=== PATIENT | male | born 1990 | race Hispanic/Latino ===

== ENCOUNTER 2018-05-17 20:08 | Emergency (ER) | payer SELFPAY | END 2018-05-17 20:38 | disposition home or self-care (01) | LOC: SCSER 20:08 | DX: B34.9 Viral infection, unspecified (principal); F17.210 Nicotine dependence, cigarettes, uncomplicated | CPT/HCPCS: 87804; 99283 ==

== ENCOUNTER 2018-10-08 16:38 | Emergency (ER) | payer SELFPAY ==
[2018-10-08 17:14] LABS: #Basophils 0.1 thou/uL (0.0-0.2); #Eosinphils 0.1 thou/uL (0.0-0.7); #Lymphocytes 2.1 thou/uL (1.20-3.40); #Monocytes 0.4 thou/uL (0.11-0.59); #Neutrophils 6.4 thou/uL (1.40-6.50); %Basophils 1.1 % (0.0-1.0); %Eosinophils 0.7 % (0.0-10.0); %Lymphocytes 23.1 % (21.0-51.0); %Monocytes 4.7 % (0.0-10.0); %Neutrophils 70.4 % (42.0-75.0); Hemoglobin 16.7 g/dL (14.0-18.0); Mean Corpuscular Hemoglobin 31.1 pg (27.0-31.0); Platelet Count 387 thou/uL (130-400); RBC Distribution Width 11.7 % (11.5-14.5); Red Blood Cell (RBC) Count 5.37 mill/uL (4.70-6.10); White Blood Cell (WBC) Count 9.1 thou/uL (4.8-10.8)
[2018-10-08 17:37] LABS: ALT (SGPT) 20 U/L (8-55); AST (SGOT) 19 U/L (5-34); Albumin 4.9 g/dL (3.5-5.0); Alkaline Phosphatase 110 U/L (40-150); Anion Gap 14 mmol/L (10-20); BUN (Urea Nitrogen) 6 mg/dL (8.9-20.6); Bilirubin, Total 0.5 mg/dL (0.2-1.2); Calc. Creatinine Clearance 0 mL/min (70-130); Carbon Dioxide 27 mmol/L (22-29); Chloride 105 mmol/L (98-107); Estimated GFR-MDRD Greater than 90; Globulin 3.4 g/dL (2.4-3.5); Glucose 94 mg/dL (70-105); Potassium 3.8 mmol/L (3.5-5.1); Protein, Total 8.3 g/dL (6.0-8.3); Sodium 142 mmol/L (136-145)
[2018-10-08 17:45] LABS: Bilirubin Negative (Negative); Blood, Urine Negative (Negative); Clarity CLEAR (Clear); Glucose, Urine (Dipstick) Negative (Negative); Leukocyte Negative (Negative); Nitrite Negative (Negative); Protein, Urine (Dipstick) Negative (Neg-Trace); Specific Gravity, Urine 1.004 (1.002-1.036); Urobilinogen 0.2 mg/dL (0.2-1.0)
[2018-10-08] MEDS ORDERED: Ketorolac Tromethamine 60 MG/2 ML VIAL ONE (18:15)
== END 2018-10-08 19:06 | disposition home or self-care (01) ==
LOC: ERS 16:38
DX: R10.9 Unspecified abdominal pain (principal); F41.9 Anxiety disorder, unspecified; K50.90 Crohn's disease, unspecified, without complications
CPT/HCPCS: 36415; 80053; 81003; 85025; 96372; J1885

== ENCOUNTER 2019-06-21 17:07 | Emergency (ER) | payer SELFPAY ==
[2019-06-21] MEDS ORDERED: cefTRIAXone\\ROCEPHIN 250 MG VIAL ONE (18:42)
[2019-06-21] MEDS ORDERED: Lidocaine 1% PF 5 ML VIAL ONE (18:42)
[2019-06-21] MEDS ORDERED: Azithromycin 250 MG TAB ONE (18:42)
== END 2019-06-21 18:55 | disposition home or self-care (01) ==
LOC: ERS 17:07
DX: J02.9 Acute pharyngitis, unspecified (principal); Z20.2 Contact with and (suspected) exposure to infections with a predominantly sexual mode of transmission; K50.90 Crohn's disease, unspecified, without complications; F41.9 Anxiety disorder, unspecified
CPT/HCPCS: 87081; 87430; 96372; 99283; J0696; J2001

== ENCOUNTER 2020-10-05 13:36 | Emergency (ER) | payer SELFPAY ==
[2020-10-05] MEDS ORDERED: Boostrix 0.5 ML (Tdap) VIAL ONE (14:41)
== END 2020-10-05 15:35 | disposition home or self-care (01) ==
LOC: ERS 13:36
DX: S62.632A Displaced fracture of distal phalanx of right middle finger, initial encounter for closed fracture (principal); L60.8 Other nail disorders; X58.XXXA Exposure to other specified factors, initial encounter
CPT/HCPCS: 90471; 90715